=== PATIENT | female | born 1945 | race Caucasian/White ===

== ENCOUNTER 2022-11-24 05:31 | Emergency (ER) | payer MEDICARE ==
[~2022-11-24] VITALS: Ht 170.2 cm; Wt 74.4 kg
[2022-11-24 05:32] VITALS: BP 180/100
--- NOTE | 2022-11-24 05:35 | NUR ---
Patient taken to bed 5.
--- NOTE | 2022-11-24 05:58 | NUR ---
Patient resting in bed, A/Ox4, chest rise and fall symmetrical, no c/o pain or s/s of distress, on monitor.
--- NOTE | 2022-11-24 06:12 | NUR ---
Dr. Bernal examining patient.
[2022-11-24 06:57] LABS: BASOPHILS % (AUTO) 0.5 % (0.0-2.0); EOSINOPHILS # (AUTO) 0.1 K/uL (0-0.4); EOSINOPHILS % (AUTO) 1.4 % (0.0-4.0); HEMATOCRIT 40.6 % (36-48); HEMOGLOBIN 13.6 g/dL (12.0-16.0); LYMPHOCYTES # (AUTO) 1.2 K/uL (2.5-16.5); LYMPHOCYTES % (AUTO) 20.5 % (20.5-51.1); MEAN CORPUSCULAR HEMOGLOBIN 30 pg (27-31); MEAN CORPUSCULAR HGB CONC 33 g/dL (33-37); MONOCYTES # (AUTO) 0.6 K/uL (0.8-1.0); NEUTROPHILS # (AUTO) 4.1 K/uL (1.8-7.7); NEUTROPHILS % (AUTO) 67.6 % (42.2-75.2); PLATELET COUNT (AUTO) 225 K/uL (140-450); RED BLOOD CELL COUNT(AUTO) 4.51 MIL/uL (4.20-5.40); RED CELL DISTRIBUTION WIDTH 13.2 % (11.6-13.7); WHITE BLOOD COUNT (AUTO) 6.1 K/uL (4.8-10.8)
[2022-11-24] MEDS ORDERED: CARB1TAB37 PO (07:13)
[2022-11-24] MEDS ORDERED: MIRT-91 PO (07:13)
[2022-11-24] MEDS ORDERED: ALEN70TA85 PO (07:13)
[2022-11-24] MEDS ORDERED: GABA100C PO (07:13)
[2022-11-24] MEDS ORDERED: ROSU10TA1 PO (07:13)
[2022-11-24] MEDS ORDERED: DULO60EC1 PO (07:13)
[2022-11-24 07:14] LABS: ALBUMIN 3.7 g/dL (3.4-5.0); ANION GAP 9.5 (8-16); ASPARTATE AMINOTRANSFERASE 19 U/L (15-37); CARBON DIOXIDE 30.6 mmol/L (21-32); CHLORIDE 107 mmol/L (98-107); CREATININE 0.9 mg/dL (0.6-1.3); GLUCOSE 105 mg/dL (74-106); POTASSIUM 4.1 mmol/L (3.5-5.1); SODIUM SERUM 143 mmol/L (136-145); THYROID STIMULATING HORMONE 2.03 uIU/mL (0.34-3.74); TOTAL BILIRUBIN 0.5 mg/dL (0.0-1.0); UREA NITROGEN, BLOOD 19 mg/dL (7-18)
[2022-11-24 07:59] VITALS: BP 155/85
--- NOTE | 2022-11-24 07:59 | NUR ---
Patient discharged with v/s stable. Written and verbal after care instructions given. Patient alert, oriented and verbalized understanding of instructions. Ambulatory with steady gait. All questions addressed prior to discharge. ID band removed. Patient advised to follow up with PMD. Opportunity to ask questions provided and answered.
--- NOTE | 2022-11-24 08:00 | NUR ---
The patient's care was reviewed and supervised by Albina Martinez, RN, RN.
== END 2022-11-24 07:59 | disposition home or self-care (01) ==
LOC: MED 05:31
DX: F41.0 Panic disorder [episodic paroxysmal anxiety] (principal); F32.A Depression, unspecified; G20 Parkinson's disease; E78.5 Hyperlipidemia, unspecified; Z88.2 Allergy status to sulfonamides
CPT/HCPCS: 36415; 71045; 80053; 84443; 84484; 85025; 93005; 99285